=== PATIENT | male | born 1955 | race African-American/Black ===

== ENCOUNTER 2018-04-19 07:03 | Emergency (ER) | payer OTHER ==
[~2018-04-19] VITALS: Ht 175.3 cm; Wt 81.2 kg
[2018-04-19 07:03] VITALS: BP 129/90
[2018-04-19 07:21] LABS: URINE BILIRUBIN NEGATIVE (Negative); URINE BLOOD TRACE (Negative); URINE CLARITY CLEAR; URINE COLOR YELLOW; URINE GLUCOSE-RANDOM* NEGATIVE (Negative); URINE KETONES TRACE (Negative); URINE LEUKOCYTES-REFLEX NEGATIVE (Negative); URINE NITRITE-REFLEX NEGATIVE (Negative); URINE PROTEIN (DIPSTICK) NEGATIVE (Negative); URINE SPECIFIC GRAVITY 1.025 (1.005-1.035); URINE UROBILINOGEN 0.2 E.U./dl (0.2-1.0)
== END 2018-04-19 07:40 | disposition left against medical advice (07) ==
LOC: ER 07:03
PROVIDERS: Emergency Medicine
DX: R10.11 Right upper quadrant pain (principal)